=== PATIENT | female | born 1995 | race Caucasian/White ===

== ENCOUNTER 2024-03-01 15:39 | Outpatient (CLI) | payer SELFPAY ==
[2024-03-01 16:09] VITALS: BP 118/72; PULSE 99
--- NOTE | 2024-03-05 07:44 | OB.TRI.NOTE ---
HPI - General General Date of Admission: 03/01/24 Date of Service: 03/01/24 HPI Narrative FEDERICA LEE, is a 28 F who presents c/o ctx Maternal Data Information Final RITESH: 03/15/24 Gestational age: 38 weeks NST FHR Rate Baby A Baseline: 130 Variability:: Moderate Accelerations:: 15 x 15 Decelerations:: None NST Reactive:: Yes FHR Category:: Category I Uterine Activity:: irreg ctxs Assessment & Plan (1) 38 weeks gestation of : PLAN: false labor, NST reactive. F/u prn or as scheduled
== END 2024-03-01 16:56 | disposition home or self-care (01) ==
LOC: WPOUT 15:54 → WP 15:55
PROVIDERS: Visit Provider Obstetrics & Gynecology
DX: O47.1 False labor at or after 37 completed weeks of gestation (principal); Z3A.38 38 weeks gestation of pregnancy
CPT/HCPCS: 59025; 59050; 87081; 87653; 99221; G0378

== ENCOUNTER 2024-03-11 09:50 | Inpatient (IN) | payer SELFPAY ==
--- NOTE | 2024-03-06 14:55 | HP.PCM_ITS ---
History and Physical Date of Admission: 03/11/24 HPI: The patient is a 28 year old female presenting for pre-operative visit. She is scheduled for , for previous c/s on 03/11/24. Procedure discussed along with risks, benefits and complications. Other alternatives discussed for management. Consent form signed? Yes. PAST MEDICAL HISTORYExpand by Default PAST MEDICAL HISTORY Diagnosis Date ? Female infertility 2017,2019 PAST SURGICAL HISTORY PAST SURGICAL HISTORY Procedure Laterality Date ? SECTION HX 10/14/2021 ? SECTION HX 02/19/2017 ? D&C, DIAG AND/OR THERAPEUTIC 03/12/2018 11 week SAB CURRENT MEDICATIONS Current Outpatient Medications Medication Sig Dispense Refill ? Vitamin w/ Iron (PNV NO. 72, W/ IRON,) 27 mg iron- 1 mg Take 1 tablet by mouth once daily. No current facility-administered medications for this visit. ALLERGIES: Patient has no known allergies. PERSONAL HISTORY: SOCIAL HISTORY Social History Tobacco Use ? Smoking status: Never ? Smokeless tobacco: Never Vaping Use ? Vaping Use: Never used Substance Use Topics ? Alcohol use: Not Currently ? Drug use: Never FAMILY HISTORY: FAMILY HISTORY FAMILY HISTORY Problem Relation Age of Onset ? other (pcos) Mother ? Diabetes Father REVIEW OF SYMPTOMS: GENERAL: denies fevers or chills ENDOCRINOLOGY: has not been on steroids Cardiology : denies palpitations or chest pain Respiratory: denies SOB or cough Hematology: denies history of prolonged bleeding or easy bruising or VTE Allergy: Denies history of personal or family history of allergy to anesthesia PHYSICAL EXAMINATION: VITALS: Blood pressure 112/78, weight 93.4 kg (206 lb), last menstrual period 06/09/2023. GENERAL: The patient is well nourished, well hydrated in no acute distress. , The patient is oriented to time, place, and person. NECK: Supple. No lynphadenopathy, normal thyroid, no thyromegaly. LUNGS: Clear to auscultation bilaterally. no wheezes, rhonchi or rales HEART: Regular rate and rhythm, Normal heart sounds, and No murmurs or gallops abd- soft, nontender,g ravid IMPRESSION: Estimated Date of Delivery: 03/15/24 PLAN: The risks/benefits/alternatives and personal involved for the planned c- section were reviewed with the patient. Her questions were answered to her satisfaction and she desires to proceed. Consent was signed. I reviewed with her postop instructions and expectations. I have reviewed and updated past medical and surgical history, medications and allergies Assessment & Plan Assessment/Plan (1) Previous delivery affecting :
[2024-03-11] VITALS (16 sets, daily range): BP systolic 97–125; BP diastolic 43–80; PULSE 68–106; RESP 16–20; TEMP 36.4–36.7; O2SAT 97–100; BMI 36.2
[2024-03-11] MEDS: Acetaminophen 500 MG Tablet 1000 MG PO ×3 (10:11→21:30)
[2024-03-11] MEDS: Lactated Ringers 1,000 ML 999 ML IV (10:35)
[2024-03-11 10:56] LABS: Absolute Lymphocyte Count 1.66 X10^3/uL (0.83-4.51); Absolute Neutrophil Count 6.1 X10^3/uL (2.0-7.7); Basophil# 0.02 X10^3/uL; Basophil% 0.2 % (0-1); Eosinophil# 0.12 X10^3/uL; Eosinophils% 1.4 % (0-5); Hemoglobin 10.6 g/dL (12.0-15.0); Lymphocyte # 1.66 X10^3/ul (0.83-4.51); Lymphocyte % 19.1 % (19-41); Mean Corp Hgb Conc 31.2 g/dL (32-36); Mean Corpuscular Hgb 25.3 pg (27.0-32.0); Mean Corpuscular Volume 81.1 fL (81-99); Mean Platelet Vol. 12.4 fl (6.2-12.0); Monocyte# 0.67 X10^3/uL; Monocyte% 7.7 % (0-10); NRBC Flagged by Analyzer 0 % (0-5); Neutrophil # 6.05 X10^3/uL (2.7-7.7); Neutrophil % 69.4 % (47-70); Platelet Count 196 K/mm3 (150-450); RBC Distribution Width CV 14.4 % (11.6-14.6); RBC Distribution Width SD 41.9 fl (35.1-43.9); Red Blood Count 4.19 M/mm3 (4.2-5.4); White Blood Count 8.7 K/mm3 (4.4-11.0)
[2024-03-11] MEDS: Lactated Ringers 1,000 ML 150 ML IV (11:40)
[2024-03-11] MEDS: LACTATED RINGERS 500 ML 999 ML IV (15:35)
[2024-03-11] MEDS: Sodium Citrate/Citric Acid 30 ML UDC PO (15:52)
[2024-03-11] MEDS: Cefazolin 2 GM in 0.9% Normal Saline (100mL Bag) 100 ML IV (16:03)
--- NOTE | 2024-03-11 17:02 | OP.PCM_ITS ---
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 She was then placed in the supine position. She was prepped and draped in the normal sterile fashion. Anesthesia was found to be adequate. At this time a Pfannenstiel skin incision was made with a knife was carried down to the underlying layer of the fascia. The fascial incision was then extended laterally using opposing traction. Attention was then turned to the superior aspect of the fascial edge was grasped with 2 straight Pippa clamps tented up and the rectus muscle dissected off sharply Rectus muscles were then in the midline bluntly and peritoneum was entered bluntly. Gentle opposing traction was placed. At this time the vesicouterine peritoneum was identified. Scalpel was used to make a uterine incision in a low transverse fashion. The uterus was then entered bluntly gentle opposing traction was taye elana to extend this incision. Membranes were ruptured clear. Infant's head was brought to the uterine incision was delivered atraumatically. was vigorous at delivery and delayed cord clamping performed. Cord was clamped and cut was handed to the waiting nursery team. The Placenta was removed from the uterus. The uterus was then removed from the abdominal cavity. The uterus was cleared of all clots and debris using a lap. At this time the uterine incision was reapproximated using #1 Vicryl in a running locked fashion. Hemostasis was appreciated. Posterior cul-de-sac was then cleared of all clots and debris. Uterus was placed back in the abdominal cavity. Gutters were cleared of all clots and debris. Uterine incision was reevaluated and noted to be of good hemostasis. Hemoblast placed over incision. At this time the peritoneum was grasped with Kellys reapproximated using #2 Vicryl suture in a running fashion. hemoblast placed over rectus. Fascia was then reapproximated using #1 Vicryl in a running fashion. Subcu layer was irrigated with NS, reapproximated with #2 0 plain gut suture in an interrupted fashion. Subcu layer was closed using 4-0 Monocryl in a subcu fashion. Dry sterile dressing was applied. Instrument lap needle count correct ?2. Anticipated normal postoperative course. Presentation: Positive for Vertex Amniotic Membrane Rupture Type: Artificial Amniotic Fluid Description: Clear Placental Delivery Description: Manual Removal Placenta Disposition: [facility] Specimen(s) Sent to Pathology: placenta Cord Vessel Description: 3 Vessels Cord Entanglement: None A Gender: Female (1 minute): 9 (5 minute): 9 Delayed Cord Clamping: Yes Complications Risks of Surgery Discussed w/Patient: Bleeding, Anesthesia Risks, Infection, Need for Future C-Sections and Injury to surrounding structure(s) including bowel and bladder Complications: none
[2024-03-11] MEDS: Oxytocin 15 Units/NS 250ml 15 UNITS/250 ML IV.SOLN 83 UNITS IV (17:15)
[2024-03-11] MEDS: Ketorolac 30 MG/ML Syringe IV (18:08)
[2024-03-11] MEDS: Lactated Ringers 1,000 ML 100 ML IV (20:18)
[2024-03-12] VITALS (8 sets, daily range): BP systolic 107–117; BP diastolic 54–75; PULSE 74–104; RESP 12–16; TEMP 36.1–37; O2SAT 98–100
[2024-03-12] MEDS: 0.9% Saline Lock 10 ML Syringe IV ×3 (00:05→11:51)
[2024-03-12] MEDS: Ketorolac 30 MG/ML Syringe IV ×3 (00:05→11:51)
[2024-03-12] MEDS: Acetaminophen 500 MG Tablet 1000 MG PO ×4 (04:51→22:22)
[2024-03-12] MEDS: Enoxaparin 40 MG/0.4 ML Syringe SC (06:14)
[2024-03-12 06:20] LABS: Hematocrit 29.8 % (37-47); Hemoglobin 9.1 g/dL (12.0-15.0); Mean Corp Hgb Conc 30.5 g/dL (32-36); Mean Corpuscular Hgb 25.3 pg (27.0-32.0); Mean Platelet Vol. 12.9 fl (6.2-12.0); Platelet Count 167 K/mm3 (150-450); RBC Distribution Width CV 14.6 % (11.6-14.6); RBC Distribution Width SD 44.1 fl (35.1-43.9); Red Blood Count 3.59 M/mm3 (4.2-5.4); White Blood Count 11.7 K/mm3 (4.4-11.0)
--- NOTE | 2024-03-12 07:01 | PCM.PN.CNM ---
Subjective Subjective Patient seen at bedside. Willard out and needs to void for the first time. Pain is controlled at this time. Objective Data Objective Data Vital Signs: Vital Signs Temp Pulse Resp BP Pulse Ox O2 Del Method 97.4 F L 93 12 110/58 L 100 Room Air 03/12/24 03:18 03/12/24 04:52 03/12/24 04:52 03/12/24 03:18 03/12/24 04:52 03/12/24 04:52 Oxygen Delivery Method Room Air Weight: 211 lb 3.245 oz Body Mass Index (BMI) 36.2 Intake & Output: Intake and Output for Last 24 Hours 03/10/24 03/11/24 03/12/24 23:59 23:59 23:59 Intake Total 2697.5 / 2697.5 500 / 500 Output Total 1000 / 1000 1200 / 1200 Balance 1697.5 / 1697.5 -700 / -700 Lab / Micro Data 03/12/24 05:10 Labs: Laboratory Results - last 24 hr 03/11/24 10:35: WBC 8.7, RBC 4.19 L, Hgb 10.6 L, Hct 34.0 L, MCV 81.1, MCH 25.3 L, MCHC 31.2 L, RDW Std Deviation 41.9, RDW Coeff of Esha 14.4, Plt Count 196, MPV 12.4 H, Immature Gran % (Auto) 2.200 H, Neut % (Auto) 69.4, Lymph % (Auto) 19.1, [place] % (Auto) 7.7, Eos % (Auto) 1.4, Baso % (Auto) 0.2, Absolute Neuts (auto) 6.1, Absolute Lymphs (auto) 1.66, Nucleated RBC % 0, Blood Type A POSITIVE, Antibody Screen NEGATIVE 03/12/24 05:10: WBC 11.7 H, RBC 3.59 L, Hgb 9.1 L, Hct 29.8 L, MCV 83.0, MCH 25.3 L, MCHC 30.5 L, RDW Std Deviation 44.1 H, RDW Coeff of Esha 14.6, Plt Count 167, MPV 12.9 H ROS Eyes Eyes: Denies blurry vision, change in vision or spots in vision ENT HEENT: Denies dizziness or headache(s) Cardiovascular Cardiovascular: Denies abdominal pain, chest pain or dyspnea Respiratory/Chest Respiratory/Chest: Denies cough, dyspnea, shortness of breath at rest or shortness of breath with exertion Gastrointestinal Gastrointestinal: Denies abdominal pain, diarrhea or vomiting Genitourinary Genitourinary: Denies change in urinary stream, difficulty urinating or dysuria Musculoskeletal Musculoskeletal: Reports none Integumentary Integumentary: Denies rash Neurologic Neurologic: Denies dizziness, headache(s), memory loss or weakness Physical Exam Narrative Dressing is dry and intact Const alert and no apparent distress General Appearance: cooperative and comfortable Exam Limitations: no limitations HEENT normocephalic Eyes General Eye: normal appearance of both eyes Neck full ROM General: normal visual inspection Chest Chest: symmetrical chest wall rise Resp normal respiratory effort and normal air movement Effort and Inspection: symmetric chest movement Auscultation: clear to auscultation bilaterally Cardio regular rate and regular rhythm GI normal to inspection, nondistended, normoactive bowel sounds Back/Spine normal ROM Extremity full ROM and no calf tenderness General Extremity: normal exam except as noted Skin no rashes or lesions noted Neuro CN's II-XII intact bilaterally Psych mental status grossly normal Assessment & Plan (1) Status post repeat low transverse section: (2) Mother currently breast-feeding: PLAN: Plan POD 1 Repeat C/S Pain control Ambulate and void support
[2024-03-12] MEDS: Senna/Docusate Sodium 1 Tablet PO (10:24)
[2024-03-12 14:13] LABS: Syphilis Antibodies Non-reactive
[2024-03-12] MEDS: Ibuprofen 600 MG Tablet PO ×2 (16:33→22:22)
[2024-03-13] MEDS: oxyCODONE 5 MG Tablet PO (01:12)
[2024-03-13 01:13] VITALS: BP 114/63; PULSE 81; RESP 14; TEMP 36.4; O2SAT 100
[2024-03-13] MEDS: Acetaminophen 500 MG Tablet 1000 MG PO (05:05)
[2024-03-13] MEDS: Enoxaparin 40 MG/0.4 ML Syringe SC (05:05)
[2024-03-13] MEDS: Ibuprofen 600 MG Tablet PO (05:05)
[2024-03-13 07:55] VITALS: BP 114/61; PULSE 84; RESP 16; TEMP 36.6; O2SAT 99
--- NOTE | 2024-03-13 08:36 | PCM.PN.OB ---
Subjective Subjective Doing well. Pain controlled. Voiding without difficulty. Lochia minimal. Breast feeding. Objective Data Objective Data Vital Signs: Vital Signs Temp Pulse Resp BP Pulse Ox O2 Del Method 97.6 F L 81 14 114/63 100 Room Air 03/13/24 01:13 03/13/24 01:13 03/13/24 01:13 03/13/24 01:13 03/13/24 01:13 03/13/24 01:13 Oxygen Delivery Method Room Air Weight: 95.8 kg Body Mass Index (BMI) 36.2 Intake & Output: Intake and Output for Last 24 Hours 03/11/24 03/12/24 03/13/24 23:59 23:59 23:59 Intake Total 2697.5 / 2697.5 1500 / 1500 Output Total 1000 / 1000 1700 / 1700 Balance 1697.5 / 1697.5 -200 / -200 Lab / Micro Data 03/12/24 05:10 Labs: Laboratory Results - last 24 hr 03/11/24 10:35: Syphilis Total Ab Non-reactive Physical Exam Const alert General Appearance: cooperative GI GI Narrative: soft, moderate distention, fundus firm, appropriately tender. Abdominal bandage clean dry and intact Assessment & Plan (1) Status post repeat low transverse section: (2) 38 weeks gestation of : (3) Mother currently breast-feeding: PLAN: Plan Discharge home
--- NOTE | 2024-03-13 08:37 | PCM.DC.SUM ---
Providers Date of Admission: 03/11/24 Date of Discharge: 03/13/24 Primary Care Physician: Nita Primary Care Phys Reason For Visit: REPEAT Diagnosis Discharge Diagnosis (1) Status post repeat low transverse section: Status: Acute Code(s): Z98.891 - History of uterine scar from previous surgery (2) 38 weeks gestation of : Status: Acute Code(s): Z3A.38 - 38 weeks gestation of (3) Mother currently breast-feeding: Status: Acute Code(s): Z39.1 - Encounter for care and examination of lactating mother Plan Discharge home Medications at Discharge Home Medications vit no.95-ferrous fumarate 28 mg-folic acid 800 mcg tablet () 2 tab PO DAILY 03/11/24 Hospital Course Operations section Procedures None Summary of Care Provided Minutes Spent on Discharge: 21 Hospital Course: Scheduled repeat Breast feeding. Uncomplicated Physical Exam Const alert General Appearance: cooperative GI GI Narrative: soft, moderate distention, fundus firm, appropriately tender. Abdominal bandage clean dry and intact Weight / BMI Weight Weight: 95.8 kg Body Mass Index (BMI) 36.2 ABG / Lab / Microbiology Data 03/12/24 05:10 Laboratory: Laboratory Results - last 24 hr 03/11/24 10:35: Syphilis Total Ab Non-reactive D/C Instructions Discharge Diet: No restrictions May resume sexual activity in: 4-6 weeks Lifting Restrictions: 20 pounds Additional Activity Instructions: Nothing in the vagina for 4-6 weeks. You may return to work/school in 6 weeks. Call your doctor if your incision/area has: Continuous Slow Oozing, Sudden Increased Bleeding, Increased Pain/ Swelling, Increased Redness and Foul Smelling Discharge Call your doctor if you observe: Fever of 101 or Higher and Using more than 1 pad per hour (for 2 hours) Suture Line Care: Avoid Pulling/Pushing and Avoid Pinching/Bending Cleanse incision/area with: Keep Dressing Clean & Dry Please Follow Up With: Destiney Al MD When: Call to make an appointment for an incision check in 1-2 [phone]. You will need a post check in 6 weeks. Meaningful Use Info Meaningful Use Meaningful Use Diagnoses (Choose all that apply): None applicable Ischemic Stroke Statin Dosing Therapy Reference: STATIN DOSE THERAPY REFERENCE: * Patients > 75 years receive moderate or high dose statin therapy. * Patients 75 years or YOUNGER should receive HIGH intensity statin dose unless contraindicated. You will be required to document reason for non-treatment if statin daily dose does not meet guidelines. HIGH DOSE STATIN THERAPY DAILY Atorvastatin > than or = to 40 mg Rosuvastatin > than or = to 20 mg Amlodipine + Atorvastatin > than or = to 2.5/40 mg Ezetimibe + Simvastatin 10/80 mg Simvastatin 80mg Discharge Plan Admission Admit Date/Time: 03/11/24 09:50 Attending Provider: Aviva Howard Primary Care Provider: Care Physician,Nita Primary Discharge Orders/Prescriptions Prescriptions: No Action PNV cmb#95-ferrous fumarate-FA [] 28 mg iron- 800 mcg tablet 2 tab PO DAILY Referrals / Follow Up: Care Physician,No Primary [Primary Care Provider] - Disposition Disposition (needs filled in before D/C Order can be placed): Home, Self Care
--- NOTE | 2024-03-13 10:19 | NURSING ---
Pt had social work order placed due to history of PPD. Pt wanted to leave due to her children being brought home by her parents. Discussed pts history with her at length. States that she had more post anxiety after her second delivery. This was a delivery at a different hospital. This infant had a 10 day stay in the NICU which the patient said caused the anxiety once they brought the baby home. Pt never had to be medicated and stated the symptoms resolved on their own as her son got older. Pt has a good support system of her , parents, and in-laws. Her and mother have both taken over a week off of work to help her with the children as she recovers. Pt and understand what symptoms to look out for and understand to call [facility] is the patient has any symptoms arise. Pt very appropriate and open during this conversation. This RN feels comfortable discharging patient home at this time.
== END 2024-03-13 10:10 | disposition home or self-care (01) | DRG 788 ==
PROVIDERS: Admitting Provider Obstetrics & Gynecology; Referring Provider Obstetrics & Gynecology; Visit Provider Obstetrics & Gynecology
PROC: (CPT 59514; principal; 2024-03-11 11:45)
DX: O34.211 Maternal care for low transverse scar from previous cesarean delivery (principal); Z37.0 Single live birth; Z3A.38 38 weeks gestation of pregnancy
CPT/HCPCS: 59025; 59050; 85025; 85027; 86780; 86850; 86900; 86901; 99221; J7120; A4216; G0378; J2405

== ENCOUNTER 2024-03-14 11:54 | Outpatient (CLI) | payer SELFPAY ==
[2024-03-14 12:00] VITALS: BP 127/74; PULSE 77; RESP 18; TEMP 36.4
[2024-03-14 12:14] VITALS: BMI 34.4
[2024-03-14 12:15] VITALS: BP 124/75; PULSE 75
[2024-03-14] MEDS: DiphenhydrAMINE 25 MG Capsule PO (12:24)
[2024-03-14 12:31] VITALS: BP 115/59; PULSE 82
[2024-03-14] MEDS: Acetaminophen/Butalbital/Caffe 1 Tablet 2 TABLET PO (12:31)
[2024-03-14] MEDS: Metoclopramide 10 MG Tablet PO (12:32)
[2024-03-14 12:45] VITALS: BP 113/59; PULSE 83
--- NOTE | 2024-03-14 14:56 | NURSING ---
CLC to room per request of patient. Pt c/o engorgement. Hospital pump given to patient d/t her pump getting broken. Pt pumping to help with engorgement. Encouraged pt to pump only to soften breast tissue to help latch on or after a feed and try to avoid pumping in between feeds. Scheduled patient to return tomorrow to see Mildred Man NP, IBCLC.
--- NOTE | 2024-03-14 15:24 | OB.TRI.HP_ITS ---
HPI - General General Date of Service: 03/14/24 Chief Complaint: headache HPI Narrative FEDERICA LEE, is a 28 F who presents with a right sided headache causing nausea and visual disturbance in right eye. BP normal and was prior to delivery. Has been breast feeding. Baby prefers the right side. Tried Motrin at home about 2 hours prior to presentation. Pain in her neck and base of head on the right side. Given Reglan , Benadryl and Fioricet on arrival too soon for Toradol. Headache did improve a little. Neck still painful. Heating pad seems to be helping as well. Discussed massage and tens unit for muscle relaxation. She does have a tens unit at home. [facility] Medical History (Updated 03/14/24 @ 15:[address] Joy Pennington MD) Infertility depression Home Medications ?Medication ?Instructions ?Recorded ?Last Taken ?Type vit no.95-ferrous 2 tab PO DAILY 03/11/24 03/13/24 16:00 History fumarate 28 mg-folic acid 800 mcg 2 tabs tablet () beet chews PO DAILY 03/14/24 03/14/24 08:30 History 2 ibuprofen 800 mg tablet 800 mg PO Q6H 03/14/24 03/14/24 10:00 History 800 mg ketorolac 10 mg tablet 10 mg PO Q8H PRN pain 1 day #7 tabs 03/14/24 Unknown Rx Allergy/AdvReac Type Severity Reaction Status Date / Time No Known Allergies Allergy Verified 03/14/24 12:25 Surgical History (Updated 03/12/24 @ 07:03 by Amanda Hines CNM) H/O dilation and curettage Social History Smoking Status: Never smoker History Elective abortions Hx Para 2 Spontaneous abortions Hx # Term Pregnancies Ectopic pregnancies Hx # Pregnancies Multiple births # of living children Physical Exam Const alert and oriented x3 Constitutional Narrative: uncomftable General Appearance: cooperative and well kempt HEENT normocephalic Head and Scalp: atraumatic Face and Sinus: normal facial exam Neck Neck Narrative: tender along upper neck and base of head. No deformity General: tenderness Resp normal respiratory effort Effort and Inspection: able to speak in complete sentences Cardio regular rate Extremity normal to inspection and full ROM Extremity Narrative: 1+ edema Skin no rashes or lesions noted Neuro oriented x3 and CN's II-XII intact bilaterally Psych mental status grossly normal and thought process normal Assessment & Plan (1) Tension headache: PLAN: Plan OK for Toradol at 4 pm. Heat and massage helped. Wants to uses TENS unit at home. Feeling better after Toradol. Rx to continue at home.
[2024-03-14] MEDS: Ketorolac 30 MG/ML Syringe IM (15:54)
[2024-03-14 17:05] VITALS: BP 117/71; PULSE 71; RESP 16; TEMP 37.1
== END 2024-03-14 17:25 | disposition home or self-care (01) ==
LOC: WPOUT 11:59 → WP 11:59
PROVIDERS: Referring Provider Obstetrics & Gynecology; Visit Provider Obstetrics & Gynecology
DX: O99.350 Diseases of the nervous system complicating pregnancy, unspecified trimester (principal); G44.209 Tension-type headache, unspecified, not intractable; Z3A.00 Weeks of gestation of pregnancy not specified
CPT/HCPCS: 99221; G0378